=== PATIENT | male | born 1965 | race Caucasian/White ===

== ENCOUNTER 2020-09-28 16:33 | Emergency (ER) | payer BC ==
[~2020-09-28] VITALS: Ht 177.8 cm; Wt 83.5 kg
== END 2020-09-28 18:37 | disposition home or self-care (01) ==
LOC: ED 16:33
DX: S97.82XA Crushing injury of left foot, initial encounter (principal); I10 Essential (primary) hypertension; W22.8XXA Striking against or struck by other objects, initial encounter
CPT/HCPCS: 73630; 99283-25